=== PATIENT | male | born 1995 | race African-American/Black ===

== ENCOUNTER 2019-09-14 20:08 | Emergency (ER) | payer OTHER ==
[~2019-09-14] VITALS: Ht 170.2 cm; Wt 59.0 kg
[2019-09-14] MEDS ORDERED: KETOROLAC 30MG/ML VIAL IV STA (22:19)
[2019-09-14] MEDS ORDERED: ONDANSETRON HCL 4MG/2ML INJ IV STA (22:19)
[2019-09-14] MEDS ORDERED: SODIUM CHLORIDE 0.9% 1,000 ML IV ONE (22:19)
[2019-09-14 22:49] LABS: BASOPHILS % 0.8 % (0.0-2.0); EOSINOPHILS % 0.3 % (0.0-5.0); HEMATOCRIT. 42.8 % (42.0-52.0); HEMOGLOBIN. 14.6 g/dL (14.0-18.0); LYMPHOCYTES % 19.6 % (20.0-50.0); MEAN CORPUSCULAR HEMOGLOBIN 30.7 pg (28.0-32.0); MEAN CORPUSCULAR VOLUME 89.5 fL (80.0-94.0); MEAN PLATELET VOLUME 10.2 fl (7.4-10.4); MONOCYTES % 5.6 % (2.0-8.0); NEUTROPHILS % 73.7 % (40.0-76.0); PLATELET 211 x1000/uL (130-400); RED BLOOD CELL COUNT 4.78 mill/uL (4.7-6.1); RED CELL DISTRIBUTION WIDTH 13.3 % (11.6-14.6)
[2019-09-14 22:50] LABS: CHLORIDE 105 mEq/L (98-107)
[2019-09-14 22:55] LABS: ETHANOL BLOOD < 10 mg/dL
[2019-09-14 22:59] LABS: CREATINE KINASE 399 IU/L (39-308)
[2019-09-14 23:02] LABS: CREATINE KINASE MB FRACTION 2.2 ng/mL (0.5-3.6)
[2019-09-15 00:15] LABS: *AMPHETAMINES SCREEN URINE NEGATIVE (NEGATIVE)
[2019-09-15 00:16] LABS: *BARBITURATES SCREEN URINE NEGATIVE (NEGATIVE); *BENZODIAZEPINES SCREEN URINE NEGATIVE (NEGATIVE); *COCAINE SCREEN URINE NEGATIVE (NEGATIVE); OPIATES URINE SCREEN NEGATIVE (NEGATIVE)
[2019-09-15 00:17] LABS: PHENCYCLIDINE URINE SCREEN NEGATIVE (NEGATIVE)
[2019-09-15 00:20] LABS: METHADONE URINE SCREEN NEGATIVE (NEGATIVE)
[2019-09-15 00:26] LABS: CANNABINOID URINE SCREEN NEGATIVE (NEGATIVE)
[2019-09-15] MEDS ORDERED: DIAZEPAM 2 MG TABLET PO ONE (00:30)
[2019-09-15 01:00] VITALS: BP 111/71
== END 2019-09-15 01:51 | disposition home or self-care (01) ==
LOC: ER 20:08
DX: J98.11 Atelectasis (principal); R07.89 Other chest pain
CPT/HCPCS: 36415; 71045; 71250; 80053; 80305; 80320; 82550; 82553; 83690; 83880; 84443; 84484; 85025; 93005; 96374; 96375; 99284; J1885; J2405; J7030; G0480